=== PATIENT | female | born 1955 | race Caucasian/White ===

== ENCOUNTER → 2018-10-25 | Outpatient (CLI) | payer OTHER ==
--- NOTE | 2018-10-25 10:42 | REPMRS ---
Patient History The patient states she had a clinical breast exam in 07/2018. Patient has history of melanoma skin cancer at age 51 and had first child at age 35. Family history of prostate cancer at age 78 in father. Retro-pectoral saline implants in both breasts, September 2015. Took hormonal contraceptives for 30 years. Digital Woman Screen Mammo: October 25, 2018 - Exam #: [id number] Bilateral CC and MLO view(s) were taken. Technologist: Radha Reaves, Technologist Prior study comparison: March 18, 2013, bilateral bilat screen digital mammo, performed at [facility] ([facility]). February 13, 2012, bilateral bilat screen digital mammo, performed at [facility] ([facility]). January 18, 2011, bilateral bilat screen digital mammo, performed at [facility] ([facility]). FINDINGS: There are scattered fibroglandular densities. The visualized implant margins are smooth. Breast parenchymal density pattern is essentially symmetric. No dominant mass, grouped microcalcification, or architectural distortion is evident on either side. 3-D tomosynthesis shows no additional findings. No significant changes when compared with prior studies. Assessment: BI-RADS/ACR category 2 mammogram. Benign Findings. Recommendation Routine screening mammogram of both breasts in 1 year (for women over age 40). This patient's Lifetime Breast Cancer RIsk is estimated at 9.2 %. This mammogram was interpreted with the aid of an FDA-approved computer-aided dectection system. Electronically Signed By: Juno Weems MD 10/25/18 0737
--- NOTE | 2018-10-29 15:54 | DEXA ---
AP SPINE L1 - L4 1.197 0.0 1.3 LT FEMUR TOTAL 0.895 -0.9 0.1 LT NECK 0.857 -1.3 0.0 RT FEMUR TOTAL 0.909 -0.8 0.2 RT NECK 0.872 -1.2 0.1 TOTAL BODY TOTAL OTHER COMMENTS: Normal bone densitometry of the spine. There is low bone density of the hips. FOLLOW-UP: Recommendation for the next bone density exam: 2 years. [facility]
== END ==
LOC: M WHC 08:40
PROVIDERS: ATTEND Emergency Medicine
DX: Z12.31 Encounter for screening mammogram for malignant neoplasm of breast (principal); Z78.0 Asymptomatic menopausal state; Z98.82 Breast implant status; Z92.0 Personal history of contraception; Z85.828 Personal history of other malignant neoplasm of skin; M85.80 Other specified disorders of bone density and structure, unspecified site